=== PATIENT | female | born 1985 | race Caucasian/White ===

== ENCOUNTER 2020-07-03 10:08 | Emergency (ER) | payer OTHER, SELFPAY ==
[2020-07-03 10:09] VITALS: BP 115/81; PULSE 103; RESP 16; TEMP 35.7; O2SAT 98; BMI 30.9
--- NOTE | 2020-07-03 10:26 | CT_ITS ---
STUDY: CT LUMBAR SPINE WITHOUT CONTRAST REASON FOR EXAM: Female, 35 years old. RADICULAR BACK PAIN/LUMBAR PAIN INTO BILAT FEET RADIATION DOSAGE (If Supplied By Facility): CTDIvol = ( 20.16 ) mGy, DLP = ( 747.17 ) mGycm TECHNIQUE: The patient was scanned in a multi detector CT scanner. High resolution transaxial imaging was performed. Images were obtained from T12 to S1 level. Sagittal and coronal images were reconstructed. Individualized dose optimization techniques were used for this CT. COMPARISON: None FINDINGS: Normal lumbar lordosis. There is no substantial scoliosis. Normal vertebrae of the lumbar spine. L1-2: Normal endplates. Normal disc height and morphology. Normal bilateral facet joints. Normal central canal and bilateral lateral recesses. Normal bilateral intervertebral neural foramina. L2-3: Normal endplates. Normal disc height and morphology. Normal bilateral facet joints. Normal central canal and bilateral lateral recesses. Normal bilateral intervertebral neural foramina. L3-4: Normal endplates. Normal disc height and morphology. Normal bilateral facet joints. Normal central canal and bilateral lateral recesses. Normal bilateral intervertebral neural foramina. L4-5: Normal endplates. Normal disc height and morphology. Normal bilateral facet joints. Normal central canal and bilateral lateral recesses. Normal bilateral intervertebral neural foramina. L5-S1: Normal endplates. Normal disc height and morphology. Normal bilateral facet joints. Normal central canal and bilateral lateral recesses. Normal bilateral intervertebral neural foramina. Essure devices are seen in the fallopian tubes. CT/Spine Lumbar without Contrast IMPRESSION: Normal unenhanced CT examination of the lumbar spine. Electronically Signed: Cesar Wolff, at 11:13 EDT , Service support ,
--- NOTE | 2020-07-03 10:37 | ED.DCSUM_ITS ---
History of Present Illness Chief Complaint: Back Narrative: Patient presenting for evaluation secondary to back pain. Patient reports that over the course of about the last 2 weeks she has been dealing with low back pain that radiates down both legs. She reports that it is associated with feelings of both numbness and weakness. Patient reports that the numbness is over the lateral portion of her calves and the lateral 3 toes bilaterally. Weakness is just associated with ambulation and with pain. This started a traumatically, but did seem to start after she had some spinal traction of her neck done in physical therapy 2 weeks ago. Patient tells me that she has not had any sort of bowel or bladder incontinence. No fevers, chills, night sweats, unintended weight loss. She denies any recent injections or surgery, no history of IV drug abuse. Patient was on a prednisone taper for 5 days about a week ago from urgent care and had minimal improvement from this. Patient denies any saddle anesthesia associated with this. Review of systems otherwise negative. Past Medical History - Allergies and Home Meds Allergies/Adverse Reactions: Allergies iodine Allergy (Verified 07/03/20 10:11) Shortness of breath Primary Care Physician: Shannan Ordonez NP-C [NON-STAFF] - Prior records reviewed: Yes Past Medical History: - - Prior history of back pain Lives: Spouse/ Significant Other Smoking Status: Never smoker Alcohol: None Drugs: None Review of Systems General: Denies: Chills, Fever, Sweats Eyes: Denies: Visual changes - bilaterally, Diplopia ENT: Denies: Rhinorrhea, Sore throat Cardiovascular: Denies: Chest pain, Palpitations Respiratory: Denies: Dyspnea, Cough, Dyspnea on exertion Gastrointestinal: Denies: Abdominal pain, Nausea, Vomiting, Diarrhea, Melena, Hematochezia Genitourinary: Denies: Dysuria, Hematuria, Frequency Musculoskeletal: Reports: Back pain Skin: Denies: Rash, Wounds Neurological: Reports: Weakness, Parasthesia. Denies: Headache, Numbness Physical Exam Vital Signs/Narrative: Vital Signs Temp Pulse Resp BP Pulse Ox 07/03/20 10:09 96.2 F L 103 H 16 115/81 H 98 Inital Vital Signs reviewed: Yes General: Well nourished, Well developed Head: Normocephalic, Atraumatic Eyes: Perrl, EOMI ENT: Moist mucous membranes, No rhinorrhea Neck: Supple, Nontender Cardiovascular: Regular rate, Regular rhythm, No murmurs Respiratory: No distress, CTA bilaterally, Chest nontender Abdomen: Soft, Nontender, Nondistended, Normal bowel sounds. Negative for: Pulsatile mass Back: Normal Inspection, Spinal tenderness - Lower lumbar, no step-offs noted, Negative SLR - Right, Negative SLR - Left Extremeties: - - Minimal ankle edema bilaterally with tenderness. 2+ DP and PT pulses bilaterally symmetric. Skin: Normal color, No rash Neuro: Alert, Oriented, Normal Sensation, Normal DTR, Normal Gait, - - 4 out of 5 strength of hip flexion bilaterally, 5 out of 5 strength knee flexion knee extension dorsiflexion plantarflexion and EHL bilaterally. Normal sensation over all dermatomes. Psychological: Normal affect Diagnostic/Tx/Re-eval Clinical Impression(s) from Imaging Studies Lumbar Spine CT 07/03/20 10:26 IMPRESSION: Normal unenhanced CT examination of the lumbar spine. Electronically Signed: Cesar Mariella, at 11:13 EDT , Service support , - Medical Decision Making Patient presented secondary to back pain. Physical exam may be showed some 4-5 weakness at the hip flexion, the patient does describe radicular symptoms over a dermatomal distribution. CT imaging was performed and was found to be negative. Patient has an otherwise normal neurologic exam, she is not complaining of bowel or bladder incontinence, saddle anesthesia, or anything that would make me concerned for this being an acute cauda equina syndrome. I do not feel that MRI imaging is indicated. Patient was given [place] in the emergency department. Patient will be given a referral to spine surgery, she will be placed on a prednisone taper and will be given [place]. She was educated on signs and symptoms which to return. ED Disposition - Plan for ED Patient: Disposition: Home or Assisted Living Diagnosis: Lumbar radiculopathy, acute Instructions: ED LUMBAR RADICULOPATHY Prescriptions: Hydrocodone Bitart/Apap 5-325 [[place] 5MG-325MG] 1 tab PO Q6H PRN PRN 3 Days #12 tab PRN Reason: Pain Prescription Printed Prednisone 10 mg PO DAILY #63 tab Prescription Printed Referrals: Malia Allen MD [STAFF PHYSICIAN] - As soon as possible
[2020-07-03] MEDS: HYDROcodone Bitartrate/Apap 5/325 Tablet PO (10:47)
== END 2020-07-03 12:12 | disposition home or self-care (01) ==
PROVIDERS: Emergency Provider Emergency Medicine; PCP Family Medicine
DX: M54.16 Radiculopathy, lumbar region (principal)
CPT/HCPCS: 72131; 99282

== ENCOUNTER 2020-12-06 08:07 | Emergency (ER) | payer OTHER, SELFPAY ==
[2020-12-06 08:08] VITALS: BP 134/88; PULSE 81; RESP 16; TEMP 36.4; O2SAT 99; BMI 31.8
--- NOTE | 2020-12-06 08:33 | ED.DCSUM_ITS ---
- ER Visit Summary Date of Service: 12/06/20 Chief Complaint: Headache History of Present Illness: The patient is a 35 F who presents with a headache that has been constant for the past 3 days. Patient states she has a history of migraine headaches and states this feels similar to prior migraine headaches. Patient states her headache is generalized. Patient states she started having some diplopia today which she has had with prior migraine headaches. Patient admits to some nausea and vomiting. Patient states nothing makes her pain better. Patient states the light makes her headache worse. Patient admits to some scotoma. Physical Examination: Vital signs are stable. Patient is afebrile. Patient is in no acute distress. Oral mucosa is pink and moist. Neck is supple. Trachea is midline. There is no JVD noted. Heart was regular rate and rhythm. Lungs are clear and equal bilaterally. Abdomen is soft. Bowel sounds are normal. There is no tenderness. There is no rebound or guarding noted. Skin is warm dry. Cranial nerves II through XII are intact. There are no focal motor or sensory deficits noted. Extremities are intact. There is no calf tenderness or edema. Emergency Department Course and Treatment: Patient was given IV fluids, Reglan, Benadryl, and Toradol. Patient is feeling better on reevaluation. Patient was to go home. Patient was instructed to rest in a dark quiet room. Patient was instructed to follow-up with her primary care physician in 5 to 7 days. Patient understood and was agreeable with the plan. All questions were answered. Disposition: Discharge home Impression: Migraine headache This note was generated with [employer] dictation software. It may contain incorrect words, spelling, and punctuation that were not noted in review of the chart prior to signing ED Disposition - Plan for ED Patient: Disposition: Home or Assisted Living Diagnosis: Migraine headache Instructions: ED, Migraine (Classical) Referrals: Humza Rogers MD [Primary Care Provider] - 5-7 Days
[2020-12-06] MEDS: Ketorolac 15 MG/ML Vial IV (08:53)
[2020-12-06] MEDS: DiphenhydrAMINE 50 MG/ML Syringe 25 MG IV (08:53)
[2020-12-06] MEDS: Metoclopramide 10 MG/2 ML Vial IV (08:54)
[2020-12-06] MEDS: 0.9% Normal Saline 1,000 ML 999 ML IV (08:55)
[2020-12-06 10:13] VITALS: BP 105/61; PULSE 80; RESP 18; O2SAT 100
== END 2020-12-06 10:14 | disposition home or self-care (01) ==
PROVIDERS: Emergency Provider Emergency Medicine; PCP Family Medicine
DX: G43.909 Migraine, unspecified, not intractable, without status migrainosus (principal); J45.909 Unspecified asthma, uncomplicated; F32.9 Major depressive disorder, single episode, unspecified
CPT/HCPCS: 96374; 96375; 99283; J7030; A4216

== ENCOUNTER 2021-06-23 15:29 | Emergency (ER) | payer OTHER, SELFPAY ==
[2021-06-23 15:31] VITALS: BP 137/90; PULSE 112; RESP 18; TEMP 36.8; O2SAT 96; BMI 36.8
[2021-06-23 15:58] VITALS: BP 121/80; PULSE 73; RESP 15; O2SAT 96
--- NOTE | 2021-06-23 16:27 | EX.ED.DYSGE1 ---
HPI History of Present Illness Chief Complaint: General Illness Informant: patient Narrative Narrative: 36-year-old female presents the emergency department with generalized body pain and skin sensitivity. She states she has fibromyalgia and is on gabapentin 300 mg 3 times a day and Cymbalta 60 mg twice a day. She sees a procurement officer in [place]. She has an appointment on . She states that her body is feeling stiff. She states that she began gabapentin in February and feels that her flares are getting worse. She denies any fevers or infectious symptoms. PFSH PFSH Medical History Anxiety Asthma Depression Fibromyalgia Kidney stones Non-smoker Home Medications sumatriptan succinate [Imitrex] 100 mg PO DAILY PRN 11/27/17 [History Last Taken Unknown] cyclobenzaprine 10 mg PO TID PRN #15 tablet 06/23/21 [Rx Last Taken Unknown] duloxetine [Cymbalta] 60 mg PO BID 06/23/21 [History Last Taken Unknown] gabapentin 300 mg PO TID 06/23/21 [History Last Taken Unknown] ketorolac 10 mg PO TID PRN 5 Days #15 tab 06/23/21 [Rx Last Taken Unknown] Allergy/AdvReac Type Severity Reaction Status Date / Time iodine Allergy Shortness Verified 06/23/21 15:31 of breath Surgical History History of bilateral fallopian tube excision Social History (Updated 06/23/21 @ 16:[address] Candido Uriarte DO) Smoking Status: Never smoker substance use type: does not use ROS ROS ED Constitutional Constitutional ED: Denies chills or weight loss Eyes Eyes: Denies change in vision or diplopia ENT ENT ED: Denies ear pain, rhinorrhea or sore throat Cardiovascular Cardiovascular: Denies chest pain, orthopnea, palpitations or racing heartbeat Respiratory/Chest Respiratory/Chest: Denies cough, dyspnea or orthopnea Gastrointestinal Gastrointestinal: Denies abdominal pain, diarrhea, nausea or vomiting Genitourinary Genitourinary ED: Denies dysuria, hematuria or urinary frequency Musculoskeletal Musculoskeletal: Reports arthralgias, myalgias and other Details: Remittent swelling right wrist and left ankle Integumentary Reports other Details: Skin hypersensitivity ; Denies abscess or rash Neurologic Neurologic: Denies headache(s) or weakness Psychiatric Psychiatric: Denies anxiety, depression, suicidal ideation or suicidal thoughts Endocrine Endocrinology: Denies polydipsia, polyphagia or polyuria Allergic/Immunologic Allergic/Immunologic ED: Denies mouth swelling, tongue swelling or urticaria EXAM Physical Exam Const Vital Signs: 06/23/21 15:31 06/23/21 15:52 06/23/21 15:58 Temperature 98.3 F Temperature Source Temporal Pulse Rate 112 H 73 Respiratory Rate 18 15 Respiratory Effort Normal Blood Pressure 137/90 H 121/80 H Blood Pressure Mean 105 93 Pulse Ox 96 96 Oxygen Delivery Method Room Air Room Air Positive well nourished and well developed General Appearance ED: well developed HEENT Reports normocephalic, head/scalp atraumatic and moist mucous membranes Eyes PERRL and EOMs intact bilaterally Neck no lymphadenopathy, supple and no JVD Resp normal respiratory effort and clear to auscultation bilaterally Cardio regular rate, regular rhythm and no murmurs GI normal to inspection, nondistended, normoactive bowel sounds and non-tender Palpation: soft Back/Spine no CVA tenderness and normal ROM Extremity normal to inspection General Extremety ED: Negative for edema General Extremity: Negative for edema Neuro oriented x3 and CN's II-XII intact bilaterally Sensorium / Orientation: alert Motor Exam: strength 5/5 throughout Psych mental status grossly normal Mood & Affect: Negative for depressed or tearful Skin no rashes or lesions noted and no wounds MDM MDM MDM Narrative Medical decision making narrative: Give the patient Toradol and some Flexeril. She states that she has not used steroids in the past. She has good follow-up arranged. Discharge Plan Triage Chief Complaint: General Illness ED Provider: Candido Uriarte Dx/Rx/DC Orders Clinical Impression: Fibromyalgia Instructions: ED Fibromyalgia Prescriptions: New cyclobenzaprine [cyclobenzaprine] 10 MG tablet 10 mg PO TID PRN (Reason: Muscle Spasm) Qty: 15 RF: 0 ketorolac 10 mg tablet 10 mg PO TID PRN (Reason: pain) 5 Days Qty: 15 RF: 0 No Action sumatriptan succinate [Imitrex] 100 MG tablet 100 mg PO DAILY PRN (Reason: Migraine Symptoms) RF: 0 gabapentin 300 mg capsule 300 mg PO TID RF: 0 duloxetine [Cymbalta] 60 mg capsule,delayed release(DR/EC) 60 mg PO BID RF: 0 Primary Care Provider: Humaz Rogers Referrals: Humza Rogers MD [Primary Care Provider] - As Needed Activity Restrictions/Additional Instructions: Follow-up with your procurement officer as scheduled Disposition Disposition: Home, Self Care
[2021-06-23] MEDS: Ketorolac 60 MG/2 ML Vial IM (16:39)
[2021-06-23 16:40] VITALS: BP 118/83; PULSE 90
== END 2021-06-23 16:49 | disposition home or self-care (01) ==
LOC: ED 16:44
PROVIDERS: Emergency Provider Emergency Medicine; PCP Family Medicine
DX: M79.7 Fibromyalgia (principal); Z87.442 Personal history of urinary calculi; Z79.899 Other long term (current) drug therapy
CPT/HCPCS: 96374; 99282

== ENCOUNTER 2021-09-05 14:49 | Emergency (ER) | payer OTHER, SELFPAY ==
[2021-09-05 14:49] VITALS: BP 109/84; PULSE 96; RESP 18; TEMP 36.5; BMI 36.1
--- NOTE | 2021-09-05 15:29 | ED.VIS.BACK ---
HPI History of Present Illness Chief Complaint: Back Informant: patient Narrative Narrative: 36-year-old female presenting to the emergency department with the chief complaint of low back pain. Patient has a history of low back pain as well as fibromyalgia. She sees a doctor in [place]. Is currently on gabapentin and lidocaine patches. The patient reports that for the past 3 days she has had increased low back pain bilaterally extending into the buttock with radiation down the legs. No loss of bowel or bladder control. No muscle weakness or sensory changes. She notes painful range of motion. 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 She is try to contact her doctor and has not gotten any response back. She denies any fevers. No IV drug use. No recent back injections. PFSH PFSH Medical History Anxiety Asthma Back pain Depression Fibromyalgia Kidney stones Non-smoker Home Medications sumatriptan succinate [Imitrex] 100 mg PO DAILY PRN 11/27/17 [History Last Taken Unknown] cyclobenzaprine 10 mg PO TID PRN #15 tablet 06/23/21 [Rx Last Taken Unknown] duloxetine [Cymbalta] 60 mg PO BID 06/23/21 [History Last Taken Unknown] gabapentin 300 mg PO TID 06/23/21 [History Last Taken Unknown] cyclobenzaprine 10 mg PO TID PRN #20 tablet 09/05/21 [Rx Last Taken Unknown] hydrocodone-acetaminophen 1 tab PO Q6H PRN PRN 3 Days #12 tablet 09/05/21 [Rx Last Taken Unknown] Allergy/AdvReac Type Severity Reaction Status Date / Time iodine Allergy Shortness Verified 09/05/21 14:57 of breath Surgical History History of bilateral fallopian tube excision Social History Smoking Status: Never smoker substance use type: does not use ROS ROS ED Constitutional Constitutional ED: Denies chills or weight loss Eyes Eyes: Denies change in vision or diplopia ENT ENT ED: Denies ear pain, rhinorrhea or sore throat Cardiovascular Cardiovascular: Denies chest pain, orthopnea, palpitations or racing heartbeat Respiratory/Chest Respiratory/Chest: Denies cough, dyspnea or orthopnea Gastrointestinal Gastrointestinal: Denies abdominal pain, diarrhea, nausea or vomiting Genitourinary Genitourinary ED: Denies dysuria, hematuria or urinary frequency Musculoskeletal Musculoskeletal: Reports back pain; Denies arthralgias or myalgias Integumentary Denies abscess or rash Neurologic Neurologic: Denies headache(s), paresthesias or weakness Psychiatric Psychiatric: Denies anxiety, depression, suicidal ideation or suicidal thoughts Endocrine Endocrinology: Denies polydipsia, polyphagia or polyuria Allergic/Immunologic Allergic/Immunologic ED: Denies mouth swelling, tongue swelling or urticaria EXAM Physical Exam Const Vital Signs: 09/05/21 14:49 Temperature 97.7 F L Temperature Source Temporal Pulse Rate 96 Respiratory Rate 18 Blood Pressure 109/84 H Blood Pressure Mean 92 Positive well nourished, well developed and obese General Appearance ED: well developed Nutritional Appearance: obese HEENT Reports normocephalic, head/scalp atraumatic and moist mucous membranes Eyes PERRL and EOMs intact bilaterally Neck no lymphadenopathy, supple and no JVD Resp normal respiratory effort and clear to auscultation bilaterally Cardio regular rate, regular rhythm and no murmurs GI normal to inspection, nondistended, normoactive bowel sounds and non-tender Palpation: soft Back/Spine no CVA tenderness and normal ROM Back/Spine Narrative: Patient has bilateral paraspinal muscular tenderness and spasm as well as tenderness in the buttock region bilaterally. Extremity normal to inspection General Extremety ED: Negative for edema General Extremity: Negative for edema Neuro oriented x3, CN's II-XII intact bilaterally and no sensory deficits noted Sensorium / Orientation: alert Motor Exam: strength 5/5 throughout Deep Tendon Reflexes: Rt Patellar (L4): 2+, Lt Patellar (L4): 2+, Rt Ankle (S1): 2+ and Lt Ankle (S1): 2+ Deep Tendon Reflexes Back: Rt Patellar (L4): 2+, Lt Patellar (L4): 2+, Rt Ankle (S1): 2+ and Lt Ankle (S1): 2+ Psych mental status grossly normal Mood & Affect: Negative for depressed or tearful Skin no rashes or lesions noted and no wounds MDM MDM MDM Narrative Medical decision making narrative: I will write for the patient has Flexeril and a few [place] at home. If in a few days her symptoms have not improved she should follow-up with her doctors. Return if worsening or concern. Discharge Plan Triage Chief Complaint: Back ED Provider: Candido Uriarte Dx/Rx/DC Orders Clinical Impression: Acute lumbosacral myofascial strain Instructions: ED Sciatica Prescriptions: New cyclobenzaprine [cyclobenzaprine] 10 MG tablet 10 mg PO TID PRN (Reason: Muscle Spasm) Qty: 20 RF: 0 hydrocodone-acetaminophen [hydrocodone-acetaminophen] 1 TABLET tablet 1 tab PO Q6H PRN PRN (Reason: Pain) 3 Days Qty: 12 RF: 0 No Action sumatriptan succinate [Imitrex] 100 MG tablet 100 mg PO DAILY PRN (Reason: Migraine Symptoms) RF: 0 gabapentin 300 mg capsule 300 mg PO TID RF: 0 duloxetine [Cymbalta] 60 mg capsule,delayed release(DR/EC) 60 mg PO BID RF: 0 cyclobenzaprine [cyclobenzaprine] 10 MG tablet 10 mg PO TID PRN (Reason: Muscle Spasm) Qty: 15 RF: 0 Primary Care Provider: Humza Rogers Referrals: Humza Rogers MD [Primary Care Provider] - As Needed Disposition Disposition: Home, Self Care
== END 2021-09-05 15:46 | disposition home or self-care (01) ==
LOC: ED 15:33
PROVIDERS: Emergency Provider Emergency Medicine; PCP Family Medicine
DX: S39.012A Strain of muscle, fascia and tendon of lower back, initial encounter (principal); E66.9 Obesity, unspecified; M79.7 Fibromyalgia; Z79.899 Other long term (current) drug therapy; X58.XXXA Exposure to other specified factors, initial encounter
CPT/HCPCS: 99282

== ENCOUNTER 2022-04-21 08:58 | Emergency (ER) | payer OTHER, SELFPAY ==
[2022-04-21 08:59] VITALS: BP 102/76; PULSE 119; RESP 16; TEMP 36.8; O2SAT 99; BMI 35.4
--- NOTE | 2022-04-21 09:10 | EDS_ITS ---
HPI History of Present Illness Chief Complaint: Abd Pain Informant: patient Onset/Context/Timing Onset: Days (3 days) Current Severity: Mild Maximum Severity: Moderate Narrative Narrative: Patient presents secondary to abdominal pain with nausea, vomiting, and diarrhea for the past 3 days. She states she is now the point where she is only bringing up stomach acid. She is not been able to keep her medication down. Her son had similar illness but his only lasted for 12 hours. Patient is unsure if she has had a fever. She complains of a crampy rolling abdominal pain. PFSH PFSH Medical History Anxiety Asthma Back pain Depression Fibromyalgia Kidney stones Non-smoker Home Medications sumatriptan succinate [Imitrex] 100 mg PO DAILY PRN 11/27/17 [History Last Taken Unknown] duloxetine [Cymbalta] 60 mg PO BID 06/23/21 [History Last Taken Unknown] gabapentin 300 mg PO TID 06/23/21 [History Last Taken Unknown] cyclobenzaprine 10 mg PO TID PRN #20 tablet 09/05/21 [Rx Last Taken Unknown] hydrocodone-acetaminophen 1 tab PO Q6H PRN PRN 3 Days #12 tablet 09/05/21 [Rx Last Taken Unknown] ondansetron 4 mg PO Q8H PRN #10 tab 04/21/22 [Rx Last Taken Unknown] pregabalin 75 mg PO BID 04/21/22 [History Last Taken Unknown] Allergy/AdvReac Type Severity Reaction Status Date / Time iodine Allergy Shortness Verified 04/21/22 08:59 of breath Surgical History History of bilateral fallopian tube excision Social History Smoking Status: Never smoker substance use type: does not use ROS ROS ED Constitutional Constitutional ED: Denies chills or fever(s) Eyes Eyes: Denies change in vision ENT ENT ED: Denies sore throat Cardiovascular Cardiovascular: Denies chest pain Respiratory/Chest Respiratory/Chest: Denies cough or dyspnea Gastrointestinal Gastrointestinal: Reports abdominal pain, diarrhea, nausea and vomiting Genitourinary Genitourinary ED: Denies dysuria Musculoskeletal Musculoskeletal: Denies back pain Integumentary Denies rash Neurologic Neurologic: Denies headache(s) or weakness Endocrine Endocrinology: Denies polydipsia or polyuria Allergic/Immunologic Allergic/Immunologic ED: Denies urticaria EXAM Physical Exam Const Vital Signs: 04/21/22 08:59 Temperature 98.2 F Temperature Source Temporal Pulse Rate 119 H Respiratory Rate 16 Blood Pressure 102/76 Blood Pressure Mean 84 Pulse Ox 99 Oxygen Delivery Method Room Air Positive well nourished and well developed General Appearance ED: well developed HEENT Reports dry mucous membranes Mouth ED: Yes dry mucous membranes Mouth: dry mucous membranes Eyes PERRL and EOMs intact bilaterally Neck supple Chest Wall inspection of chest normal and palpation of chest normal Resp normal respiratory effort and clear to auscultation bilaterally Cardio regular rhythm Rate: tachycardic GI non-tender Auscultation: hypoactive bowel sounds Palpation: soft Extremity normal to inspection Neuro oriented x3 Sensorium / Orientation: alert Psych mental status grossly normal Skin no rashes or lesions noted MDM MDM MDM Narrative Medical decision making narrative: Patient given IV fluids along with Zofran. Lab work obtained. Lab Data Attestation: I reviewed the patient's lab results. Labs: Laboratory Results - last 24 hr 04/21/22 04/21/22 09:18 09:18 WBC 8.5 RBC 5.03 Hgb 14.9 Hct 45.0 MCV 89.5 MCH 29.6 MCHC 33.1 RDW Std Deviation 43.5 RDW Coeff of Diogo 13.3 Plt Count 316 MPV 10.3 Immature Gran % (Auto) 0.600 Neut % (Auto) 93.1 H Lymph % (Auto) 3.0 L [place] % (Auto) 3.1 Eos % (Auto) 0.1 Baso % (Auto) 0.1 Absolute Neuts (auto) 7.9 H Absolute Lymphs (auto) 0.25 L Nucleated RBC % 0 Differential Comment SCANNED Sodium 139 Potassium 4.0 Chloride 108 H Carbon Dioxide 27.0 Anion Gap 4 L BUN 15 Creatinine 0.85 Estim Creat Clear Calc 71.67 Est GFR (MDRD) Af Amer 97 Est GFR (MDRD) Non-Af 80 BUN/Creatinine Ratio 17.7 Glucose 123 H Calcium 8.8 Total Bilirubin 0.50 Direct Bilirubin 0.15 AST 13 L ALT 25 Alkaline Phosphatase 71 Total Protein 7.7 Albumin 3.8 Globulin 3.9 Treatment and Re-Evaluation Narrative: Repeat evaluation nausea is improved. She is able to tolerate ice chips. Lab work reviewed and unremarkable. Patient be given Zofran for home and will continue supportive care. Discharge Plan Triage Chief Complaint: Abd Pain ED Provider: Virginia Lott Dx/Rx/DC Orders Clinical Impression: Gastroenteritis Instructions: ED Gastroenteritis, Viral (Adult) Prescriptions: New ondansetron 4 mg tablet,disintegrating 4 mg PO Q8H PRN (Reason: nausea and vomiting) Qty: 10 RF: 0 No Action sumatriptan succinate [Imitrex] 100 MG tablet 100 mg PO DAILY PRN (Reason: Migraine Symptoms) RF: 0 gabapentin 300 mg capsule 300 mg PO TID RF: 0 duloxetine [Cymbalta] 60 mg capsule,delayed release(DR/EC) 60 mg PO BID RF: 0 cyclobenzaprine [cyclobenzaprine] 10 MG tablet 10 mg PO TID PRN (Reason: Muscle Spasm) Qty: 20 RF: 0 hydrocodone-acetaminophen [hydrocodone-acetaminophen] 1 TABLET tablet 1 tab PO Q6H PRN PRN (Reason: Pain) 3 Days Qty: 12 RF: 0 pregabalin 75 mg capsule 75 mg PO BID RF: 0 Primary Care Provider: Humza Rogers Referrals: Humza Rogers MD [Primary Care Provider] - 3-5 Days if not improving Disposition Disposition: Home, Self Care
[2022-04-21] MEDS: 0.9% Normal Saline 1,000 ML 1000 ML IV (09:19)
[2022-04-21] MEDS: Ondansetron 4 MG/2 ML Vial IV (09:19)
[2022-04-21 09:23] LABS: Absolute Lymphocyte Count 0.25 X10^3/uL (0.83-4.51); Absolute Neutrophil Count 7.9 X10^3/uL (2.0-7.7); Basophil# 0.01 X10^3/uL; Basophil% 0.1 % (0-1); Eosinophil# 0.01 X10^3/uL; Eosinophils% 0.1 % (0-5); Hemoglobin 14.9 g/dL (12.0-15.0); Lymphocyte # 0.25 X10^3/ul (0.83-4.51); Mean Corp Hgb Conc 33.1 g/dL (32-36); Mean Corpuscular Hgb 29.6 pg (27.0-32.0); Mean Corpuscular Volume 89.5 fL (81-99); Mean Platelet Vol. 10.3 fl (6.2-12.0); Monocyte# 0.26 X10^3/uL; Monocyte% 3.1 % (0-10); NRBC Flagged by Analyzer 0 % (0-5); Neutrophil # 7.87 X10^3/uL (2.7-7.7); Neutrophil % 93.1 % (47-70); POSITIVE DIFFERENTIAL YES; Platelet Count 316 K/mm3 (150-450); RBC Distribution Width CV 13.3 % (11.6-14.6); RBC Distribution Width SD 43.5 fl (35.1-43.9); Red Blood Count 5.03 M/mm3 (4.2-5.4); White Blood Count 8.5 K/mm3 (4.4-11.0)
[2022-04-21 09:29] LABS: Differential Indicated SCAN CRITERIA MET
[2022-04-21 09:39] LABS: AST(SGOT) 13 U/L (15-37); Alanine Aminotransfer ALT/SGPT 25 U/L (13-56); Albumin, Serum 3.8 g/dL (3.2-5.0); Alkaline Phosphatase 71 U/L (45-117); Anion Gap 4 (5-15); BUN 15 mg/dL (7-18); BUN/Creat Ratio 17.7 RATIO (10-20); Bilirubin, Direct 0.15 mg/dL (0.00-0.30); Calcium,Total 8.8 mg/dL (8.5-10.1); Chloride 108 mmol/L (98-107); Creatinine, Serum 0.85 mg/dL (0.55-1.02); EST Glomerular Filtration Rate 80 mL/min (>60); Est Glom Filt Rate - Afr Amer 97 mL/min (>60); Estimated Creatinine Clearance 71.67 ml/min; Globulin 3.9 g/dL (2.2-4.2); Glucose 123 mg/dL (74-106); Protein, Total 7.7 g/dL (6.4-8.2); Sodium Level 139 mmol/L (136-145)
[2022-04-21 09:41] LABS: Differential Comment SCANNED
[2022-04-21 10:18] VITALS: PULSE 105; RESP 16; O2SAT 98
== END 2022-04-21 10:19 | disposition home or self-care (01) ==
PROVIDERS: Emergency Provider Emergency Medicine; PCP Family Medicine; Visit Provider Emergency Medicine
DX: K52.9 Noninfective gastroenteritis and colitis, unspecified (principal)
CPT/HCPCS: 80048; 80076; 85025; 96361; 96374; 99283; J7030; A4216; J2405

== ENCOUNTER 2022-09-25 13:02 | Emergency (ER) | payer OTHER, SELFPAY ==
[2022-09-25 13:03] VITALS: BP 131/83; PULSE 94; RESP 14; TEMP 36.2; O2SAT 94; BMI 33.7
[2022-09-25 13:05] VITALS: BP 131/83; PULSE 94; RESP 14; TEMP 36.2; O2SAT 94
--- NOTE | 2022-09-25 13:19 | EX.ED.DYSGE1 ---
HPI History of Present Illness Chief Complaint: Abscess Informant: patient Onset/Context/Timing Onset: Month(s) (1) Context: Gradual Onset Timing: Waxes and wanes Quality: sore Location: L lateral upper arm Current Severity: Severe Maximum Severity: Severe Worsened by: Palpation Relieved by: Leaving alone Associated Symptoms Associated Symptoms: Draining off and on. No systemic symptoms. Narrative Narrative: Patient with a history of at bedtime and prior abscesses has never had one in this area, but feels like she is having another abscess. Upper left lateral arm/shoulder. Off and on for the last month, she is squeezed some stuff out of it in that amount of time but seems to have worsened in the past day. No drainage in the past day. No systemic symptoms. No history of a vaccine or other injection or obvious etiology for this in this particular location. PFSH PFSH Medical History Anxiety Asthma Back pain Bipolar 1 disorder Depression Fibromyalgia Hidradenitis suppurativa Kidney stones Non-smoker Home Medications sumatriptan succinate 100 mg tablet (Imitrex) 100 mg PO DAILY PRN Migraine Symptoms 11/27/17 [History Last Taken Unknown] duloxetine 60 mg capsule,delayed release (Cymbalta) 60 mg PO BID 06/23/21 [History Last Taken Unknown] gabapentin 300 mg capsule 300 mg PO TID 06/23/21 [History Last Taken Unknown] cyclobenzaprine 10 mg tablet 10 mg PO TID PRN Muscle Spasm #20 TABLETS 09/05/21 [Rx Last Taken Unknown] hydrocodone-acetaminophen 5-325mg 5mg-325mg 1 tab PO Q6H PRN PRN Pain 3 days #12 TABLETS 09/05/21 [Rx Last Taken Unknown] ondansetron 4 mg disintegrating tablet 4 mg PO Q8H PRN nausea and vomiting #10 tabs 04/21/22 [Rx Last Taken Unknown] pregabalin 75 mg capsule 75 mg PO BID 04/21/22 [History Last Taken Unknown] sulfamethoxazole 800 mg-trimethoprim 160 mg tablet 1 tab PO BID #20 TABLETS 09/25/22 [Rx Last Taken Unknown] Allergy/AdvReac Type Severity Reaction Status Date / Time iodine Allergy Shortness Verified 09/25/22 13:03 of breath Surgical History History of bilateral fallopian tube excision Social History Smoking Status: Never smoker substance use type: does not use ROS ROS ED Constitutional Constitutional ED: Denies chills or fever(s) Musculoskeletal Musculoskeletal: Reports extremity pain; Denies neck pain Integumentary Reports abscess; Denies Abrasions, rash or wounds Neurologic Neurologic: Denies paresthesias or weakness EXAM Physical Exam Const Vital Signs: 09/25/22 13:03 09/25/22 13:05 09/25/22 15:03 Temperature 97.2 F L 97.2 F L Temperature Source Temporal Temporal Pulse Rate 94 94 67 Respiratory Rate 14 14 18 Blood Pressure 131/83 H 131/83 H Blood Pressure Mean 99 99 Pulse Ox 94 94 99 Oxygen Delivery Method Room Air Room Air Room Air Positive well nourished and well developed General Appearance ED: well developed and NAD Neck full ROM and supple Back/Spine normal ROM and normal to inspection Extremity Extremity Narrative: 1 cm indurated abscess without spontaneous drainage lateral aspect of the left shoulder. Excellent range of motion of the shoulder without any difficulty. Neuro oriented x3, no focal motor deficits and no sensory deficits noted Sensorium / Orientation: alert Psych mental status grossly normal and thought process normal Skin no wounds Skin Narrative: 1 cm abscess cutaneous lateral aspect of the upper left arm near the shoulder, no reason to suspect the joint is involved here. It seems superficial. No spontaneous drainage. Rashes: no rashes MDM MDM MDM Narrative Medical decision making narrative: I&D performed, see the procedure note. Started on Bactrim, will give her prescription, advised to return if it worsens despite this. Procedures Other Procedures Procedure(s): Simple incision and drainage cutaneous abscess left upper arm: After informed verbal consent, patient was prepped with isopropanol, anesthetized with 2 cc of plain 1% lidocaine, then incised centrally about the cutaneous abscess with a #11 blade. Scant amount of purulent material was drained, then some blood. The cavity was deloculated, irrigated with sterile saline 20 cc, and dressed with bacitracin. Tolerated well no complications. Discharge Plan Triage Chief Complaint: Abscess ED Provider: Jose Ramon Hicks Dx/Rx/DC Orders Clinical Impression: Cutaneous abscess of left upper extremity Instructions: ED Abscess Incision And Drainage Prescriptions: New sulfamethoxazole-trimethoprim [sulfamethoxazole-trimethoprim] 1 TABLET tablet 1 tab PO BID Qty: 20 0RF No Action sumatriptan succinate [Imitrex] 100 MG tablet 100 mg PO DAILY PRN (Reason: Migraine Symptoms) gabapentin 300 mg capsule 300 mg PO TID Label Comments: TAKE 1 CAPSULE BY MOUTH THREE TIMES DAILY FOR 90 DAYS. duloxetine [Cymbalta] 60 mg capsule,delayed release(DR/EC) 60 mg PO BID Label Comments: TAKE 1 CAPSULE BY MOUTH TWICE DAILY cyclobenzaprine [cyclobenzaprine] 10 MG tablet 10 mg PO TID PRN (Reason: Muscle Spasm) Qty: 20 0RF hydrocodone-acetaminophen [hydrocodone-acetaminophen] 1 TABLET tablet 1 tab PO Q6H PRN PRN (Reason: Pain) 3 Days Qty: 12 0RF pregabalin 75 mg capsule 75 mg PO BID Label Comments: TAKE 1 CAPSULE BY MOUTH TWICE DAILY FOR 90 DAYS. ondansetron 4 mg tablet,disintegrating 4 mg PO Q8H PRN (Reason: nausea and vomiting) Qty: 10 0RF Primary Care Provider: Humza Rogers Referrals: Humza Rogers MD [Primary Care Provider] - As Needed Disposition Disposition: Home, Self Care
[2022-09-25] MEDS: Smz/Tmp Ds Tablet 1 TABLET PO (13:26)
[2022-09-25 15:03] VITALS: PULSE 67; RESP 18; O2SAT 99
--- NOTE | 2022-09-25 15:37 | NURSING ---
Sepsis screen completed. No bloodwork, or cultures obtained at this time.
[2022-09-25] MEDS: Lidocaine 1% (20 ml mdv) 20 ML Vial INFILT (16:24)
== END 2022-09-25 16:26 | disposition home or self-care (01) ==
PROVIDERS: Emergency Provider Emergency Medicine; PCP Family Medicine; Visit Provider Emergency Medicine
DX: L02.414 Cutaneous abscess of left upper limb (principal)
CPT/HCPCS: 10060; 99283

== ENCOUNTER 2022-11-09 20:52 | Emergency (ER) | payer OTHER, SELFPAY ==
[2022-11-09 20:53] VITALS: BP 116/79; PULSE 87; RESP 15; TEMP 36.6; O2SAT 97; BMI 34.5
--- NOTE | 2022-11-09 20:58 | RAD_ITS ---
INDICATION: Trauma, fall, ankle injury EXAMINATION/TECHNIQUE: X-RAY - LEFT XR Ankle Min 3 Views 3 VIEWS COMPARISON: Left foot series same date FINDINGS: SOFT TISSUES: No soft tissue swelling or gas. No radiopaque foreign body. BONES/JOINTS: No acute fracture. Preservation of the joint spaces. No sclerotic or destructive changes observed. RAD/Ankle min 3 Views IMPRESSION: No acute bony injury. Electronically Signed: Mario Hwang MD at 21:57 EST ,
--- NOTE | 2022-11-09 20:58 | RAD_ITS ---
INDICATION: Trauma, fall, lateral pain EXAMINATION/TECHNIQUE: X-RAY - LEFT XR Foot Min 3 Views 3 VIEWS COMPARISON: None. FINDINGS: SOFT TISSUES: No soft tissue swelling or gas. No radiopaque foreign body. BONES/JOINTS: No acute fracture. Preservation of the joint spaces. No sclerotic or destructive changes observed. RAD/Foot min 3 Views IMPRESSION: No acute bony injury. Electronically Signed: Mario Hwang MD at 21:55 EST ,
--- NOTE | 2022-11-09 21:54 | ED.VIS.LOWEX ---
HPI History of Present Illness Chief Complaint: Lower Extremity Injury Detail of Chief Complaint: Left foot and ankle injury Informant: patient Narrative Narrative: Patient presents the emergency department with complaint of left foot and ankle injury that occurred at 8 PM today. Patient states that she was coming down the steps to the basement and there was a piece of Styrofoam on the landing and she accidentally stepped and rolled her ankle. She denies any other injuries. She is having hard time bearing weight secondary to pain. PFSH PFSH Medical History Anxiety Asthma Back pain Bipolar 1 disorder Depression Fibromyalgia Hidradenitis suppurativa Kidney stones Non-smoker Home Medications duloxetine 60 mg capsule,delayed release (Cymbalta) 60 mg PO BID 06/23/21 [History Last Taken Unknown] cyclobenzaprine 10 mg tablet 10 mg PO TID PRN Muscle Spasm #20 TABLETS 09/05/21 [Rx Last Taken Unknown] pregabalin 75 mg capsule 75 mg PO BID 04/21/22 [History Last Taken Unknown] Allergy/AdvReac Type Severity Reaction Status Date / Time iodine Allergy Shortness Verified 11/09/22 20:55 of breath sumatriptan Allergy Other Verified 11/09/22 21:20 Surgical History History of bilateral fallopian tube excision Social History Smoking Status: Never smoker substance use type: does not use ROS ROS ED Review of Systems ROS Unobtainable: other Constitutional Constitutional ED: Reports lethargy; Denies chills, fever(s), sweats or weight loss Eyes Eyes: Denies blurry vision, change in vision or diplopia ENT ENT ED: Denies rhinorrhea or sore throat Cardiovascular Cardiovascular: Denies chest pain, orthopnea or racing heartbeat Respiratory/Chest Respiratory/Chest: Denies cough, dyspnea, dyspnea on exertion, orthopnea or sputum Gastrointestinal Gastrointestinal: Denies abdominal pain, diarrhea, nausea or vomiting Genitourinary Genitourinary ED: Denies dysuria, hematuria or urinary frequency Musculoskeletal Musculoskeletal: Reports other Details: Left foot and ankle pain ; Denies arthralgias, back pain, myalgias or neck pain Integumentary Denies abscess, Abrasions or rash Neurologic Neurologic: Denies headache(s) or weakness Psychiatric Psychiatric: Denies anxiety, depression or suicidal thoughts Endocrine Endocrinology: Denies polydipsia, polyphagia or polyuria Hematologic/Lymphatic Hematologic/Lymphatic: Denies easy bleeding, easy bruising or lymphadenopathy Allergic/Immunologic Allergic/Immunologic ED: Denies mouth swelling, tongue swelling or urticaria EXAM Physical Exam Const Vital Signs: 11/09/22 20:53 Temperature 97.8 F Temperature Source Temporal Pulse Rate 87 Respiratory Rate 15 Blood Pressure 116/79 Blood Pressure Mean 91 Pulse Ox 97 Oxygen Delivery Method Room Air Positive well nourished and well developed General Appearance ED: well developed and NAD HEENT Reports TM's clear and moist mucous membranes normocephalic and atraumatic; Negative for trauma or tenderness Tympanic Membrane ED: Yes TM's clear Eyes PERRL and EOMs intact bilaterally General Eye ED: Negative for pale conjunctiva or scleral icterus Neck no lymphadenopathy, supple and no JVD General: Negative for tenderness Chest Wall inspection of chest normal and palpation of chest normal Chest: Negative for tenderness Resp normal respiratory effort and clear to auscultation bilaterally Effort and Inspection: Negative for respiratory distress or pain with movement Auscultation: Negative for rhonchi, wheezes or diminished lung sounds Cardio regular rate, regular rhythm, S1 normal heart sound, S2 normal heart sound and no murmurs Peripheral Pulses: pulses 2+ throughout GI normal to inspection, nondistended, normoactive bowel sounds, soft to palpation, non-tender, non-distended and no masses Back/Spine no CVA tenderness and no thoracic nor lumbar tenderness Extremity Extremity Narrative: Left leg-patient has tenderness palpation over the medial malleolus and medial proximal foot. There is no soft tissue swelling noted. There is no ecchymosis or bruising noted. Patient also with tenderness to palpation over the dorsal lateral aspect of the foot distally. No pain at the proximal fibular head. General Extremety ED: Negative for edema General Extremity: Negative for edema Neuro oriented x3, CN's II-XII intact bilaterally, no sensory deficits noted and gait normal Sensorium / Orientation: awake, alert, oriented to person, oriented to place and oriented to time Motor Exam: strength 5/5 throughout and strength abnormal Psych mental status grossly normal Skin no rashes or lesions noted and no wounds MDM MDM MDM Narrative Medical decision making narrative: Patient will be given an Shreyas wrap and air splint. Patient will be given crutches. Patient advised to use ibuprofen or Tylenol for his discomfort. Patient to ice and elevate the extremity. Patient to follow-up with primary care physician within the next 5 to 7 days. Radiography Diagnostic Testing: Three-view x-rays of the left ankle obtained interpreted by myself as no acute fractures. Radiology in agreement. Three-view x-rays left foot obtained interpreted by myself as no acute fractures. Radiology in agreement. Discharge Plan Triage Chief Complaint: Lower Extremity Injury ED Provider: Vance Moreno Dx/Rx/DC Orders Clinical Impression: Ankle sprain, Foot sprain Instructions: ED Foot Sprain, ED Ankle Sprain (Adult) Prescriptions: No Action duloxetine [Cymbalta] 60 mg capsule,delayed release(DR/EC) 60 mg PO BID Label Comments: TAKE 1 CAPSULE BY MOUTH TWICE DAILY cyclobenzaprine [cyclobenzaprine] 10 MG tablet 10 mg PO TID PRN (Reason: Muscle Spasm) Qty: 20 0RF pregabalin 75 mg capsule 75 mg PO BID Label Comments: TAKE 1 CAPSULE BY MOUTH TWICE DAILY FOR 90 DAYS. Primary Care Provider: Humza Rogers Referrals: Humza Rogers MD [Primary Care Provider] - 5-7 Days Disposition Disposition: Home, Self Care
[2022-11-09] MEDS: Ibuprofen 400 MG Tablet 800 MG PO (22:12)
== END 2022-11-09 22:20 | disposition home or self-care (01) ==
PROVIDERS: Emergency Provider Emergency Medicine; PCP Family Medicine; Visit Provider Emergency Medicine
DX: S93.409A Sprain of unspecified ligament of unspecified ankle, initial encounter (principal); X50.9XXA Other and unspecified overexertion or strenuous movements or postures, initial encounter
CPT/HCPCS: 73610; 73630; 99283

== ENCOUNTER 2023-08-02 08:41 | Emergency (ER) | payer OTHER, SELFPAY ==
[2023-08-02 08:43] VITALS: BP 122/87; PULSE 93; RESP 16; TEMP 36.2; O2SAT 100; BMI 34.7
--- NOTE | 2023-08-02 09:06 | EX.ED.DYSGE1 ---
HPI History of Present Illness Chief Complaint: Dizziness Detail of Chief Complaint: Dizziness and disorientation per patient Informant: patient Onset/Context/Timing Onset: Today (The disorientation occurred this morning while making her children's lunch) and Days (Dizziness on present for couple of days.) Context: Sudden Onset Timing: Intermittent Quality: Dizziness is defined as lightheaded and is not positional Location: Not applicable Current Severity: Gone Maximum Severity: Moderate Worsened by: Nothing Relieved by: Nothing Associated Symptoms Associated Symptoms: Per HPI narrative Narrative Narrative: Patient is a 38-year-old female who presents after talking with her primary care provider. She has had several episodes of dizziness which she defines as being lightheaded. This is not associated with standing, sitting. It can occur even lying down. It is not described as a spinning sensation, her or the room. She denies double vision, blurred vision or visual loss. She denies trouble with speech or swallowing. She denies ringing or ears or decreased hearing. She denies cardiac or respiratory symptoms. She denies abdominal pain, black or maroon-colored stool. She endorsed 1 episode of diarrhea and describes the stool as mushy . She denies urologic symptoms. She denies problems with balance or coordination. Of note their house has been warm recently because their air conditioning unit does not work. Prior similar symptoms: No Recent Illness/Hospitalization: No PFSH PFSH Medical History Anxiety Asthma Back pain Bipolar 1 disorder Depression Fibromyalgia Hidradenitis suppurativa Kidney stones Non-smoker Home Medications duloxetine 60 mg capsule,delayed release (Cymbalta) 60 mg PO BID 06/23/21 [History Last Taken Unknown] cyclobenzaprine 10 mg tablet 10 mg PO TID PRN Muscle Spasm #20 TABLETS 09/05/21 [Rx Last Taken Unknown] pregabalin 75 mg capsule 75 mg PO BID 04/21/22 [History Last Taken Unknown] Allergy/AdvReac Type Severity Reaction Status Date / Time iodine Allergy Shortness Verified 08/02/23 08:43 of breath sumatriptan Allergy Other Verified 08/02/23 08:43 Surgical History History of bilateral fallopian tube excision Social History (Updated 08/02/23 @ 09:[address] Reynaldo Glez MD) Smoking Status: Never smoker alcohol intake: former details: Recovering alcoholic substance use type: does not use ROS ROS ED Constitutional Constitutional ED: Reports sweats; Denies chills, fever(s), subjective or weight loss Eyes Eyes: Denies blurry vision, change in vision or diplopia ENT ENT ED: Denies ear pain, rhinorrhea or sore throat Cardiovascular Cardiovascular: Denies chest pain, palpitations or racing heartbeat Respiratory/Chest Respiratory/Chest: Denies cough, dyspnea or dyspnea on exertion Gastrointestinal Gastrointestinal: Reports diarrhea; Denies abdominal pain, melena, nausea or vomiting Genitourinary Genitourinary ED: Denies dysuria, hematuria or urinary frequency Musculoskeletal Musculoskeletal: Denies arthralgias or myalgias Integumentary Denies rash Neurologic Neurologic: Denies headache(s), paresthesias or weakness EXAM Physical Exam Const Vital Signs: 08/02/23 08:43 08/02/23 09:39 08/02/23 09:41 Temperature 97.2 F L Temperature Source Temporal Pulse Rate 93 Pulse Rate [Lying] 79 Pulse Rate [Sitting (for 1 minute prior to obtaining)] 85 Pulse Rate [Standing (for 1 minute prior to obtaining)] 96 Respiratory Rate 16 Respiratory Effort Normal Non-Labored Respiratory Pattern Normal Blood Pressure 122/87 H Blood Pressure [Lying] 114/76 Blood Pressure [Sitting (for 1 minute prior to obtaining)] 119/85 H Blood Pressure [Standing (for 1 minute prior to obtaining)] 124/89 H Blood Pressure Mean 98 Blood Pressure Mean [Lying] 88 Blood Pressure Mean [Sitting (for 1 minute prior to obtaining)] 96 Blood Pressure Mean [Standing (for 1 minute prior to obtaining)] 100 Pulse Ox 100 Oxygen Delivery Method Room Air Orthostatic vital signs are normal. Positive well nourished, well developed and obese General Appearance ED: well developed and NAD; Negative for cyanotic, diaphoretic or pallor Nutritional Appearance: obese HEENT Reports dry mucous membranes HEENT Narrative: Head is normocephalic atraumatic. Ears are normal. Nares patent. Posterior pharynx unremarkable. Mouth ED: Yes dry mucous membranes Mouth: dry mucous membranes Eyes PERRL and EOMs intact bilaterally Eyes Narrative: There is no nystagmus. General Eye ED: Negative for pale conjunctiva or scleral icterus Neck supple and no JVD Resp normal respiratory effort and clear to auscultation bilaterally Cardio regular rate, regular rhythm, S1 normal heart sound, S2 normal heart sound and no murmurs GI normal to inspection, nondistended, normoactive bowel sounds, non-tender, non-distended and no masses; Negative for hepatosplenomegaly Extremity normal to inspection General Extremety ED: Negative for edema or tenderness General Extremity: Negative for edema Neuro oriented x3, CN's II-XII intact bilaterally and no sensory deficits noted Neuro Narrative: Bicep, brachialis, triceps, patella and ankle reflex are 2+ and symmetric there is no clonus or Babinski sign. Sensorium / Orientation: alert Motor Exam: strength 5/5 throughout Psych mental status grossly normal Skin no rashes or lesions noted, no wounds and skin turgor normal General Skin Exam: Negative for jaundice or pallor MDM MDM MDM Narrative Medical decision making narrative: Since patient is describing orthostatic dizziness or orthostatic vital signs were obtained. Her tongue is dry. Will obtain UA to assess specific gravity and determine if there is ketones in her urine. Basic metabolic panel to assess for any electrolyte abnormality. CBC to rule out anemia. Patient's provider raise concern for stroke. Patient was told her symptoms are not consistent with a stroke and her neuro exam is normal. History & Record Review Additional record(s) reviewed:: Prior ED visit (Multiple visits for migraine, fibromyalgia, sprains and strains.) and Prior labs Lab Data Attestation: I reviewed the patient's lab results. Lab results narrative: She BC is normal. BMP he has no. UA is normal. Labs: Laboratory Results - last 24 hr 08/02/23 08/02/23 08:50 09:25 WBC 6.4 RBC 4.85 Hgb 14.4 Hct 44.1 MCV 90.9 MCH 29.7 MCHC 32.7 RDW Std Deviation 43.2 RDW Coeff of Diogo 13.0 Plt Count 355 MPV 10.3 Immature Gran % (Auto) 0.300 Neut % (Auto) 63.2 Lymph % (Auto) 25.3 Levy % (Auto) 7.2 Eos % (Auto) 3.1 Baso % (Auto) 0.9 Absolute Neuts (auto) 4.0 Absolute Lymphs (auto) 1.61 Nucleated RBC % 0 Sodium 137 Potassium 4.1 Chloride 106 Carbon Dioxide 27.0 Anion Gap 4 L BUN 9 Creatinine 0.95 Estim Creat Clear Calc 62.88 Est GFR (MDRD) Af Amer 84 Est GFR (MDRD) Non-Af 70 BUN/Creatinine Ratio 9.5 L Glucose 100 Calcium 9.1 Urine Color Yellow Urine Clarity Clear Urine pH 6.5 Ur Specific [place] 1.010 Urine Protein Negative Urine Glucose (UA) Normal Urine Ketones Negative Urine Occult Blood Negative Urine Nitrite Negative Urine Bilirubin Negative Urine Urobilinogen Normal Ur Leukocyte Esterase Negative Treatment and Re-Evaluation :: Patient was informed the cause of her symptoms is unknown. She was informed that her symptoms are not consistent with a stroke. asked if this could be due to the fact that the air conditioning is not working in the house is very hot. He was informed this could be a possibility. I informed him that the exact cause is unknown. Discharge Plan Triage Chief Complaint: Dizziness ED Provider: Reynaldo Glez Dx/Rx/DC Orders Clinical Impression: Orthostatic dizziness Instructions: ED Dizziness, Uncertain Cause Prescriptions: No Action duloxetine [Cymbalta] 60 mg capsule,delayed release(DR/EC) 60 mg PO BID Patient Comments: TAKE 1 CAPSULE BY MOUTH TWICE DAILY cyclobenzaprine [cyclobenzaprine] 10 MG tablet 10 mg PO TID PRN (Reason: Muscle Spasm) Qty: 20 0RF pregabalin 75 mg capsule 75 mg PO BID Patient Comments: TAKE 1 CAPSULE BY MOUTH TWICE DAILY FOR 90 DAYS. Primary Care Provider: Humza Rogers Referrals: Humza Rogers MD [Primary Care Provider] - 3-5 Days if not improving Disposition Disposition: Home, Self Care
[2023-08-02 09:41] VITALS: BP 114/76; BP 119/85; BP 124/89; PULSE 79; PULSE 85; PULSE 96
[2023-08-02 09:44] LABS: Absolute Lymphocyte Count 1.61 X10^3/uL (0.83-4.51); Basophil# 0.06 X10^3/uL; Basophil% 0.9 % (0-1); Eosinophils% 3.1 % (0-5); Hematocrit 44.1 % (37-47); Hemoglobin 14.4 g/dL (12.0-15.0); Lymphocyte # 1.61 X10^3/ul (0.83-4.51); Lymphocyte % 25.3 % (19-41); Mean Corp Hgb Conc 32.7 g/dL (32-36); Mean Corpuscular Hgb 29.7 pg (27.0-32.0); Mean Corpuscular Volume 90.9 fL (81-99); Mean Platelet Vol. 10.3 fl (6.2-12.0); Monocyte# 0.46 X10^3/uL; Monocyte% 7.2 % (0-10); NRBC Flagged by Analyzer 0 % (0-5); Neutrophil # 4.01 X10^3/uL (2.7-7.7); Neutrophil % 63.2 % (47-70); Platelet Count 355 K/mm3 (150-450); RBC Distribution Width SD 43.2 fl (35.1-43.9); Red Blood Count 4.85 M/mm3 (4.2-5.4); White Blood Count 6.4 K/mm3 (4.4-11.0)
[2023-08-02 09:45] LABS: Color, Urine Yellow (Yellow); Glucose, Dipstick Normal (Normal); Ketone-Dipstick Negative (Negative); Leukocyte Esterase-Dipstick Negative /ul (Negative); Nitrite-Dipstick Negative (Negative); Occult Blood-Urine Negative /ul (Negative); Protein-Dipstick Negative (Negative); Urine Bilirubin Dipstick Negative (Negative); Urine Clarity Clear (Clear); Urine Urobilinogen Normal (Normal); Urine pH 6.5 (5.0 - 8.0)
[2023-08-02 10:08] LABS: Anion Gap 4 (5-15); BUN 9 mg/dL (7-18); BUN/Creat Ratio 9.5 RATIO (10-20); Calcium,Total 9.1 mg/dL (8.5-10.1); Chloride 106 mmol/L (98-107); Creatinine, Serum 0.95 mg/dL (0.55-1.02); EST Glomerular Filtration Rate 70 mL/min (>60); Est Glom Filt Rate - Afr Amer 84 mL/min (>60); Estimated Creatinine Clearance 62.88 ml/min; Glucose 100 mg/dL (74-106); Potassium 4.1 mmol/L (3.5-5.1); Sodium Level 137 mmol/L (136-145)
[2023-08-02 11:24] VITALS: RESP 14
== END 2023-08-02 11:24 | disposition home or self-care (01) ==
PROVIDERS: Emergency Provider Emergency Medicine; PCP Family Medicine; Visit Provider Emergency Medicine
DX: R42 Dizziness and giddiness (principal); E66.9 Obesity, unspecified
CPT/HCPCS: 80048; 81002; 85025; 99285; A4216

== ENCOUNTER → 2023-10-21 | Outpatient (CLI) | payer OTHER, SELFPAY ==
--- NOTE | 2023-10-21 | FLU_PTH ---
PATIENT: TO CORTEZ [facility]: [facility] U#:[id number] AGE/SX: 38/F ROOM: RE10/21/[address]: Dr. Napoleon Balbuena MD : 1985 BED: DIS: 10/21/2023 SPEC #: [id number] RECD: 10/24/23 07:06 STATUS: KELLEY REQ #: [id number] LYRIC: 10/21/23 00:[address]: Kelly Balbuena DEPT: CYTOLOGY RECD BY: Kerry Grimes ENTERED: 10/24/23 07:07 SP TYPE: Fluid OTHR DR: Dr. Humza Rogers MD Tissues: A - Thyroid gland, NOS B - Thyroid gland, NOS Procedures: Special Stain Group II Surgery Specimen Level IV Cytospin Fluid Comments: @ Ordering doctor for SSII edited from to @ by JOSE at 10/24/23 1013 @ Ordering doctor for SUIV edited from to @ by JOSE at 10/24/23 1013 @ Ordering doctor for CYSPIN edited from to @ by JOSE at 10/24/23 1013 @ Submitting doctor edited from to @ by RGOCAROL at 10/24/23 1013 HEADER OPERATION: Fine needle aspiration, right mid/lower thyroid PRE-OP DIAGNOSIS: Abnormal thyroid ultrasound TISSUE SUBMITTED: A - Right mid/lower thyroid fluid, B - Right mid/lower thyroid x8 slides DIAGNOSIS CYTOLOGY A. Fine needle aspiration, right mid lower thyroid nodule (cytospin and cell block): Consistent with benign follicular nodule with cystic change, [place] Category II. See comment. B. Fine needle aspiration, right mid lower thyroid nodule (smears): Consistent with benign follicular nodule with cystic change, [place] Category II. See comment. AM:maximiliano 10/25/2023 COMMENT A & B. The [place] System for thyroid diagnostic categorization was used in the evaluation of this case. Adequate for evaluation. CYTOLOGY STUDY Slides are reviewed. CYTOLOGY GROSS A - Received is 30 ml of brownish bloody fluid labeled with the patient's name and and designated per the requisition as right mid/lower thyroid. Submitted for cytology preparation including cell block. B - Received are eight smears labeled with the patient's name and designated per the requisition as right mid/lower thyroid. Submitted for staining. / maximiliano 10/24/2023 TC:5 CPT: 49045 x2, 54435
== END | disposition home or self-care (01) ==
PROVIDERS: PCP Family Medicine; Visit Provider Radiology Radiation Oncology
DX: E04.1 Nontoxic single thyroid nodule (principal)
CPT/HCPCS: 88108; 88305; 88313

== ENCOUNTER 2024-04-28 05:13 | Emergency (ER) | payer OTHER, SELFPAY ==
[2024-04-28 05:13] VITALS: BP 131/77; PULSE 84; RESP 17; TEMP 36.9; O2SAT 98; BMI 36.1
--- NOTE | 2024-04-28 05:42 | CT_ITS ---
STUDY: CT ABDOMEN AND PELVIS WITHOUT CONTRAST REASON FOR EXAM: Female, 38 years old patient with descending colon colitis. RADIATION DOSAGE (If Supplied By Facility): CTDIvol = ( 17.38 ) mGy, DLP = ( 838.18 ) mGycm TECHNIQUE: Transaxial images were obtained from the dome of the diaphragm to the symphysis pubis without oral contrast, and without intravenous contrast. Sagittal and coronal images were reconstructed. Individualized dose optimization techniques were used for this CT. COMPARISON: Prior comparison studies are not available for review at this time. FINDINGS: The visualized lung bases are unremarkable. The visualized portions of the heart are within normal limits. Normal liver. There are surgical clips in the gallbladder fossa consistent with a prior cholecystectomy. Normal spleen. Normal pancreas. Normal bilateral adrenal glands. Normal right kidney. Normal left kidney. Normal visualized stomach. There is no obvious dilated bowel, ascites or pneumoperitoneum. The small bowel has a grossly normal appearance. Stool and/or gas is visible in colon. The appendix is visualized and appears normal. Normal abdominal aorta. Normal inferior vena cava. Normal retroperitoneum. Normal urinary bladder. Normal visualized uterus. IUD is present. Normal abdominal wall. Normal osseous structures. CT/Abdomen/Pelvis without Cont IMPRESSION: No CT evidence of acute intra-abdominal disease. Electronically Signed: Gerda Jefferson MD at 8:12 EDT ,
--- NOTE | 2024-04-28 05:43 | ED.VIS.GI ---
HPI HPI - GI History of Present Illness Chief Complaint: GI Bleed Informant: patient Narrative Narrative: 38-year-old female presenting to the emergency room for evaluation of bright red blood per rectum and diarrhea. Patient states that when she arrived to work she had an episode of diarrhea with bright red blood. She describes the diarrhea as liquidy brown. She states she has had some urinary frequency during the night. She has developed a left sided left lower quadrant suprapubic pain. She notes that she was experiencing some lightheadedness and generalized weakness. She had a second episode of diarrhea with bright red blood which prompted her to come to emergency. No recent travel or antibiotics. No known inflammatory bowel conditions. She does have a history of hemorrhoids which have not been problematic for her in recent times. She notes no rectal pain. No fever. No dysuria or hematuria. She has never had colonoscopy. [facility] Medical History Osteoarthritis High triglycerides Hyperlipidemia History of frequent headaches Gall stones Emotional problems Recurrent UTI Allergies AA (alcohol abuse) Lung nodule Thyroid nodule Vitamin D deficiency IBS (irritable bowel syndrome) Mixed hyperlipidemia History of alcohol abuse Hidradenitis suppurativa Bipolar 1 disorder Back pain Depression Anxiety Non-smoker Kidney stones Fibromyalgia Asthma Home Medications ?Medication ?Instructions ?Recorded ?Last Taken ?Type cyclobenzaprine 10 mg tablet 10 mg PO TID PRN Muscle Spasm #20 09/05/21 Unknown Rx TABLETS duloxetine 60 mg capsule,delayed 60 mg PO BID #180 caps 02/27/24 Unknown Rx release (Cymbalta) pregabalin 75 mg capsule 150 mg PO BID 02/27/24 Unknown History topiramate 25 mg tablet 25 mg PO QHS 04/28/24 Unknown History Allergy/AdvReac Type Severity Reaction Status Date / Time shellfish derived Allergy Mild trouble Verified 04/28/24 05:14 breathing iodine Allergy Shortness Verified 04/28/24 05:14 of breath sumatriptan Allergy Other Verified 04/28/24 05:14 Family History Father Alcoholism Depression Cancer bladder Mother Alcoholism Grandmother Asthma Breast cancer Depression COPD (chronic obstructive pulmonary disease) Diabetes Sister Cancer cervical Depression Anemia Grandfather Cancer lung Grandfather Cancer lung Uncle Diabetes Surgical History Hx of cholecystectomy History of surgical procedure History of bilateral fallopian tube excision Social History household members: spouse current occupational status: employed 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 Smoking Status: Never smoker Electronic Cigarette Use: not used alcohol intake: former details: Recovering alcoholic, 2013 substance use type: does not use what type of physical activity do you participate in: walking do you feel safe at home: Yes ROS ROS ED ROS Narrative Generalized weakness malaise Constitutional Constitutional ED: Denies chills, fever(s) or weight loss Eyes Eyes: Denies change in vision or diplopia ENT ENT ED: Denies ear pain, rhinorrhea or sore throat Cardiovascular Cardiovascular: Denies chest pain, orthopnea, palpitations or racing heartbeat Respiratory/Chest Respiratory/Chest: Denies cough, dyspnea or orthopnea Gastrointestinal Gastrointestinal: Reports abdominal pain, diarrhea and other Details: Bright red blood per rectum ; Denies nausea or vomiting Genitourinary Genitourinary ED: Reports urinary frequency; Denies dysuria or hematuria Musculoskeletal Musculoskeletal: Denies arthralgias, back pain, myalgias or neck pain Integumentary Denies abscess or rash Neurologic Neurologic: Denies headache(s) or weakness Psychiatric Psychiatric: Denies anxiety, depression, suicidal ideation or suicidal thoughts Endocrine Endocrinology: Denies polydipsia, polyphagia or polyuria Allergic/Immunologic Allergic/Immunologic ED: Denies mouth swelling, tongue swelling or urticaria EXAM Physical Exam Const Vital Signs: 04/28/24 05:13 Temperature 98.4 F Temperature Source Oral Pulse Rate 84 Respiratory Rate 17 Blood Pressure 131/77 H Blood Pressure Mean 95 Pulse Ox 98 Oxygen Delivery Method Room Air Positive well nourished and well developed General Appearance ED: well developed HEENT Reports normocephalic, head/scalp atraumatic and moist mucous membranes Eyes PERRL and EOMs intact bilaterally Neck no lymphadenopathy, supple and no JVD Resp normal respiratory effort and clear to auscultation bilaterally Cardio regular rate, regular rhythm and no murmurs GI Inspection: Negative for abdominal distention Auscultation: hyperactive bowel sounds Palpation: soft and tender LLQ and suprapubic; Negative for guarding or rebound tenderness present Back/Spine no CVA tenderness and normal ROM Extremity normal to inspection General Extremety ED: Negative for edema General Extremity: Negative for edema Neuro oriented x3 and CN's II-XII intact bilaterally Sensorium / Orientation: alert Motor Exam: strength 5/5 throughout Psych mental status grossly normal Mood & Affect: Negative for depressed or tearful Skin no rashes or lesions noted and no wounds MDM MDM MDM Narrative Medical decision making narrative: Differential diagnosis would include diverticular disease colitis infectious diarrhea vascular anomaly; less likely to be internal hemorrhoid with no history of straining or prolonged sitting. Patient's had no further bleeding or diarrhea here in the department. White count 6.7 hemoglobin 13.1 platelet count 341. BUN is 16 creatinine 1 point suggest negative urinalysis is negative. CT abdomen/pelvis without contrast. Does not demonstrate any acute colitis or diverticulitis. Do not see any significant diverticular disease. Patient was advised of the above findings. Will discharge her home. Return if continued bleeding or worsening or concerns. History & Record Review Discussion w/independent historian: Patient Lab Data Attestation: I reviewed the patient's lab results. Labs: Laboratory Results - last 24 hr 04/28/24 04/28/24 05:52 06:38 WBC 6.7 RBC 4.48 Hgb 13.1 Hct 40.0 MCV 89.3 MCH 29.2 MCHC 32.8 RDW Std Deviation 42.2 RDW Coeff of Diogo 12.9 Plt Count 341 MPV 10.5 Immature Gran % (Auto) 0.300 Neut % (Auto) 54.6 Lymph % (Auto) 32.4 [place] % (Auto) 7.0 Eos % (Auto) 4.8 Baso % (Auto) 0.9 Absolute Neuts (auto) 3.7 Absolute Lymphs (auto) 2.18 Nucleated RBC % 0 Sodium 143 Potassium 3.4 L Chloride 112 H Carbon Dioxide 25.0 Anion Gap 6 BUN 16 Creatinine 1.00 Estim Creat Clear Calc 78.58 Est GFR (MDRD) Af Amer 79 Est GFR (MDRD) Non-Af 66 BUN/Creatinine Ratio 16.1 Glucose 120 H Calcium 9.0 Serum , Qual NEGATIVE Urine Color Yellow Urine Clarity Sl. Cloudy Urine pH 7.0 Ur Specific [place] 1.020 Urine Protein Negative Urine Glucose (UA) Normal Urine Ketones Negative Urine Occult Blood Negative Urine Nitrite Negative Urine Bilirubin Negative Urine Urobilinogen Normal Ur Leukocyte Esterase Negative Urine RBC 0 SEEN Urine WBC 0 SEEN Ur Squamous Epith Cells 0 SEEN Amorphous Sediment 2+ Urine Bacteria 0 SEEN Urine Mucus 0 SEEN Radiography Diagnostic Testing: Clinical Impression(s) from Imaging Studies Abdomen/Pelvis CT 04/28/24 05:42 IMPRESSION: No CT evidence of acute intra-abdominal disease. Electronically Signed: Gerda Jefferson MD at 8:12 EDT Reading Location ID and State: [address] [place] [address] , Service support , Discharge Plan Triage Chief Complaint: GI Bleed ED Provider: Candido Uriarte Dx/Rx/DC Orders Clinical Impression: Diarrhea, Acute lower gastrointestinal bleeding Instructions: ED Diarrhea, Unknown Cause, ED Lower GI Bleeding (Stable) Prescriptions: No Action duloxetine [Cymbalta] 60 mg capsule,delayed release(DR/EC) 60 mg PO BID Qty: 180 0RF cyclobenzaprine [cyclobenzaprine] 10 MG tablet 10 mg PO TID PRN (Reason: Muscle Spasm) Qty: 20 0RF pregabalin 75 mg capsule 150 mg PO BID Patient Comments: TAKE 1 CAPSULE BY MOUTH TWICE DAILY FOR 90 DAYS. Rx Instructions: pt takes 150mg twice daily topiramate 25 mg tablet 25 mg PO QHS Primary Care Provider: Humza Rogers Referrals: Humza Rogers MD [Primary Care Provider] - Activity Restrictions/Additional Instructions: If continued symptoms please follow-up with primary care or return if worsening concerns or new symptoms. Print Language: Irish Disposition Disposition: Home, Self Care
[2024-04-28 06:00] LABS: Absolute Lymphocyte Count 2.18 X10^3/uL (0.83-4.51); Absolute Neutrophil Count 3.7 X10^3/uL (2.0-7.7); Basophil# 0.06 X10^3/uL; Basophil% 0.9 % (0-1); Eosinophil# 0.32 X10^3/uL; Eosinophils% 4.8 % (0-5); Hemoglobin 13.1 g/dL (12.0-15.0); Lymphocyte # 2.18 X10^3/ul (0.83-4.51); Lymphocyte % 32.4 % (19-41); Mean Corp Hgb Conc 32.8 g/dL (32-36); Mean Corpuscular Hgb 29.2 pg (27.0-32.0); Mean Corpuscular Volume 89.3 fL (81-99); Mean Platelet Vol. 10.5 fl (6.2-12.0); Monocyte# 0.47 X10^3/uL; NRBC Flagged by Analyzer 0 % (0-5); Neutrophil # 3.68 X10^3/uL (2.7-7.7); Neutrophil % 54.6 % (47-70); Platelet Count 341 K/mm3 (150-450); RBC Distribution Width CV 12.9 % (11.6-14.6); RBC Distribution Width SD 42.2 fl (35.1-43.9); Red Blood Count 4.48 M/mm3 (4.2-5.4); White Blood Count 6.7 K/mm3 (4.4-11.0)
[2024-04-28 06:08] LABS: Internal QC Validated? YES +Cl - CLEAR BKGD; Pregnancy, Serum, hCG Quali. NEGATIVE Negative
[2024-04-28 06:14] LABS: Anion Gap 6 (5-15); BUN 16 mg/dL (7-18); BUN/Creat Ratio 16.1 RATIO (10-20); Chloride 112 mmol/L (98-107); EST Glomerular Filtration Rate 66 mL/min (>60); Est Glom Filt Rate - Afr Amer 79 mL/min (>60); Estimated Creatinine Clearance 78.58 ml/min; Glucose 120 mg/dL (74-106); Potassium 3.4 mmol/L (3.5-5.1); Sodium Level 143 mmol/L (136-145)
[2024-04-28 06:41] LABS: Bacteria 0 SEEN /hpf (None Seen); Mucous, Urine 0 SEEN /hpf (<or=2+); Red Blood Cells-Urine 0 SEEN /hpf (0-5); Squamous Epithelial Cells - UA 0 SEEN /hpf (5-10); White Blood Cells 0 SEEN /hpf (0-5)
[2024-04-28 06:43] LABS: Color, Urine Yellow (Yellow); Glucose, Dipstick Normal (Normal); Ketone-Dipstick Negative (Negative); Leukocyte Esterase-Dipstick Negative /ul (Negative); Nitrite-Dipstick Negative (Negative); Occult Blood-Urine Negative /ul (Negative); Protein-Dipstick Negative (Negative); Urine Bilirubin Dipstick Negative (Negative); Urine Clarity Sl. Cloudy (Clear); Urine Urobilinogen Normal (Normal)
[2024-04-28 07:01] LABS: Amorphous Sediment 2+
[2024-04-28] MEDS: 0.9% Normal Saline (1000mL) 1,000 ML 999 ML IV (07:07)
[2024-04-28 07:13] VITALS: BP 109/79; PULSE 66; RESP 19; O2SAT 98
[2024-04-28 08:37] VITALS: BP 105/73; PULSE 73; RESP 18; TEMP 36.1; O2SAT 97
== END 2024-04-28 08:38 | disposition home or self-care (01) ==
PROVIDERS: Emergency Provider Emergency Medicine; PCP Family Medicine; Visit Provider Emergency Medicine
DX: K92.2 Gastrointestinal hemorrhage, unspecified (principal); R19.7 Diarrhea, unspecified
CPT/HCPCS: 74176; 80048; 81001; 84703; 85025; 96360; 99282; A4216

== ENCOUNTER → 2024-10-16 | Outpatient (CLI) | payer OTHER, SELFPAY ==
[2024-10-16 12:11] LABS: Absolute Neutrophil Count 4.6 X10^3/uL (2.0-7.7); Basophil# 0.05 X10^3/uL; Basophil% 0.7 % (0-1); Eosinophil# 0.33 X10^3/uL; Eosinophils% 4.5 % (0-5); Hematocrit 44.2 % (37-47); Hemoglobin 14.7 g/dL (12.0-15.0); Lymphocyte % 24.3 % (19-41); Mean Corp Hgb Conc 33.3 g/dL (32-36); Mean Corpuscular Hgb 29.5 pg (27.0-32.0); Mean Corpuscular Volume 88.6 fL (81-99); Mean Platelet Vol. 10.7 fl (6.2-12.0); Monocyte# 0.58 X10^3/uL; Monocyte% 7.8 % (0-10); NRBC Flagged by Analyzer 0 % (0-5); Neutrophil # 4.63 X10^3/uL (2.7-7.7); Neutrophil % 62.4 % (47-70); Platelet Count 405 K/mm3 (150-450); RBC Distribution Width SD 42.1 fl (35.1-43.9); Red Blood Count 4.99 M/mm3 (4.2-5.4); White Blood Count 7.4 K/mm3 (4.4-11.0)
[2024-10-16 12:26] LABS: Vitamin D,25 Hydroxy 26.6 ng/mL
[2024-10-16 12:31] LABS: ALB/GLOB Ratio 0.8 RATIO (0.9-2.4); AST(SGOT) 21 U/L (15-37); Alanine Aminotransfer ALT/SGPT 47 U/L (13-56); Albumin, Serum 3.7 g/dL (3.2-5.0); Alkaline Phosphatase 106 U/L (45-117); Anion Gap 6 (5-15); BUN 10 mg/dL (7-18); BUN/Creat Ratio 11.1 RATIO (10-20); Calcium,Total 9.3 mg/dL (8.5-10.1); Chloride 107 mmol/L (98-107); EST Glomerular Filtration Rate 74 mL/min (>60); Est Glom Filt Rate - Afr Amer 89 mL/min (>60); Globulin 4.4 g/dL (2.2-4.2); Glucose 97 mg/dL (74-106); Potassium 3.9 mmol/L (3.5-5.1); Protein, Total 8.1 g/dL (6.4-8.2); Sodium Level 138 mmol/L (136-145); Thyroid Stim Hormone (TSH) 0.105 uIU/mL (0.358-3.740)
[2024-10-16 13:21] LABS: T3 Total - Triiodothyronine 1.18 ng/mL (0.6-1.81)
[2024-10-16 13:22] LABS: T4 Total, Thyroxin 6.7 ug/dL (4.8-13.9)
[2024-10-17 14:09] LABS: Anti-Centromere B Ab <0.2 AI (0.0-0.9); Anti-Chromatin <0.2 AI (0.0-0.9); Anti-Jo <0.2 AI (0.0-0.9); Anti-Scleroderma-70 AB <0.2 AI (0.0-0.9); Anti-dsDNA Ab <1 IU/mL (0-9); RNP Ab 0.2 AI (0.0-0.9); SJOGREN'S Anti-SS-A test < 0.2 AI (0.0-0.9); SJOGREN'S Anti-SS-B test < 0.2 AI (0.0-0.9); Smith Ab <0.2 AI (0.0-0.9)
[2024-10-17 15:08] LABS: Endomysial Antibody IgA Negative (Negative); Immunoglobulin A 247 mg/dL (87-352); Thyroglobulin Antibody < 1.0 IU/mL (0.0-0.9); Thyroid Peroxidase AB 12 IU/mL (0-34); t-Transglutaminase IgA <2 U/mL (0-3)
== END | disposition home or self-care (01) ==
LOC: BIMLAB 08:07
PROVIDERS: PCP Internal Medicine; Visit Provider Internal Medicine
DX: M79.7 Fibromyalgia (principal); K58.1 Irritable bowel syndrome with constipation; E55.9 Vitamin D deficiency, unspecified
CPT/HCPCS: 36415; 80053; 82306; 82784; 83516; 84436; 84443; 84480; 85025; 86225; 86235; 86255; 86376; 86800

== ENCOUNTER → 2024-10-19 | Outpatient (CLI) | payer OTHER, SELFPAY ==
--- NOTE | 2024-10-19 18:21 | US_ITS ---
INDICATION: thyroid nodule follow up EXAMINATION: Ultrasound US Thyroid (eg thyroid, parathyroid, parotid) TECHNIQUE: Martinez scale and color doppler imaging was performed of the thyroid gland. COMPARISON: No relevant prior comparison study available FINDINGS: RIGHT THYROID LOBE: 5.3 x 2.4 x 2.5 cm cm. Parenchyma: The gland echotexture is homogenous. Thyroid vascularity is normal. LEFT THYROID LOBE: 4.8 x 1.4 x 1.1 cm. Parenchyma: The gland echotexture is homogenous. Thyroid vascularity is normal. ISTHMUS: 0.3 cm in maximum AP dimension. Estimated total number of nodules greater than equal to 1 cm: 1. Building Associate nodules are described as follows: 1. Location: Right mid Size: 3.1 x 2 x 2.1 cm cm, volume 6.6 mL. Nodule characteristics: Composition: Mixed cystic and solid (1). Echogenicity: Isoechoic (1). Shape: Wider than tall (0). Margins: Smooth (0). Echogenic Foci: None (0). ACR TI-RADS total points: 2. ACR TI-RADS category: 2. LYMPH NODES: No lymphadenopathy is seen in the tissue surrounding the thyroid gland. US/Thyroid IMPRESSION: Dominant nodule in the right thyroid lobe. Based on appearance, no specific follow-up recommended. ACR TI-RADS RECOMMENDATION REFERENCE: Ultrasound-guided fine-needle aspiration, follow-up ultrasound, no further follow-up. *TR 1 (0 points) and TR 2 (2 points): No FNA or follow-up. *TR 3 (3 points): FNA if more than or equal to 2.5 cm in maximum dimension. Follow-up ultrasound in 1, 3, and 5 years if 1.5 to 2.4 cm in maximum dimension. *TR 4 (4-6 points): FNA if more than or equal to 1.5 cm in maximum dimension. Follow-up ultrasound in 1, 2, 3, and 5 years if 1 to 1.4 cm in maximum dimension. *TR 5 (more than or equal to 7 points): FNA if more than or equal to 1 cm in maximum dimension. Follow-up ultrasound every year for 5 years if 0.5 to 0.9 cm in maximum dimension. *TR 3, TR 4, or TR 5 nodules that are below the size threshold for follow-up receive no follow-up. Electronically Signed: Paul Timmons MD at 21:55 EST ,
== END | disposition home or self-care (01) ==
LOC: US 18:21
PROVIDERS: PCP Internal Medicine; Referring Provider Internal Medicine; Visit Provider Internal Medicine
DX: E04.1 Nontoxic single thyroid nodule (principal)
CPT/HCPCS: 76536

== ENCOUNTER → 2024-10-26 | Outpatient (CLI) | payer OTHER, SELFPAY ==
--- NOTE | 2024-10-26 13:51 | BI_ITS ---
MAMMOGRAPHY - BILATERAL SCREENING REASON FOR EXAM: Female, 39 years old. Routine annual screening examination. PERTINENT HISTORY: Grandmother with breast cancer. TECHNIQUE: Digital bilateral breast jacque (3D mammographic acquisition) in the CC and MLO projections. 2-D mediolateral oblique (MLO) and craniocaudad (CC) views of both breasts were obtained. CAD: Full Field Digital Mammography with Computer Added Detection was performed. COMPARISON: None. Baseline examination. FINDINGS: Breast Composition: The breasts are heterogeneously dense, which may obscure small masses. There are no dominant masses or suspicious calcifications. Small bilateral axillary lymph nodes. No other significant abnormalities are identified. There has been no significant change since the prior study. BI/SCRN MAMM (CAD)W/JACQUE BILAT IMPRESSION: Stable bilateral screening mammogram. Yearly follow-up mammogram recommended. (A) ASSESSMENT CATEGORY: BIRADS Category 2: Benign. A letter regarding these results will be sent to the patient by the facility within 30 days. Approximately 10% of breast cancers are not detected by mammography. A normal mammogram should not delay biopsy of a clinically suspicious abnormality. [id number] Electronically Signed: Cesar Wolff MD at 9:34 EST ,
== END | disposition home or self-care (01) ==
LOC: OPBI 13:50
PROVIDERS: PCP Internal Medicine; Referring Provider Internal Medicine; Visit Provider Internal Medicine
DX: Z12.31 Encounter for screening mammogram for malignant neoplasm of breast (principal)
CPT/HCPCS: 77063; 77067

== ENCOUNTER 2024-11-27 11:12 | Emergency (ER) | payer OTHER, SELFPAY ==
[2024-11-27 11:12] VITALS: BP 126/84; PULSE 100; RESP 16; TEMP 36.6; O2SAT 98; BMI 38.0
== END 2024-11-27 13:30 | disposition left against medical advice (07) ==
LOC: ED 13:34
PROVIDERS: PCP Internal Medicine
DX: Z53.21 Procedure and treatment not carried out due to patient leaving prior to being seen by health care provider (principal)